=== PATIENT | female | born 1935 | race Caucasian/White ===

== ENCOUNTER 2023-12-19 08:45 | Inpatient (IN) ==
[2023-12-19 13:34] LABS: ABS Monocytes 0.6 10^3/uL (0.0-0.9); ABS Neutrophils 5.9 10^3/uL (1.5-7.6); ABS Nucleated RBC 0.01 10^3/ul; Hematocrit 40.1 % (35-45); Hemoglobin 13.4 g/dL (11.5-14.3); Lymphocyte % 13.1 %; Mean Corpuscular Hgb Conc 33.4 g/dL (31-36); Mean Platelet Volume 8.5 fL (7.5-11.2); Nucleated Red Blood Cells % 0.2 %/100WBC (0.0-0.8); Platelet Count 180 10^3/uL (150-450); Red Blood Count 4.31 10^6/uL (3.63-4.92); Red Cell Distribution Width 15.5 % (12-17); White Blood Count 7.6 10^3/uL (3.8-11.8)
[2023-12-19 13:46] LABS: Activated Partial Thrombo Time 38.2 seconds (26.0-38.0); INR 2.66 (0.83-1.13)
[2023-12-19 14:16] LABS: Albumin/Globulin Ratio 1.3 (1-3); C Reactive Protein 72.3 mg/L (<8.01); Calcium 8.7 mg/dL (8.6-10.3); Creatinine, Serum 2.07 mg/dL (0.51-0.95); Globulin 3.1 g/dL (2-4); Magnesium 2.3 mg/dL (1.9-2.7); Potassium 5.1 mmol/L (3.5-5.0); Total Bilirubin 0.4 mg/dL (0.2-1.0); Total Protein 7.1 g/dL (6.4-8.9); eGFR CKD-EPI 22.6 (>60)
[2023-12-19] MEDS: Albuterol/Ipratropium NEB.SOL (2.5/0.5 MG) 3 ML NEB.SOLN INH ONE (14:46)
[2023-12-19 14:49] LABS: Urine Appearance Turbid; Urine Bilirubin Negative (Negative); Urine Blood 3+ (Negative); Urine Color Yellow; Urine Glucose Negative (Negative); Urine Ketones Trace (Negative); Urine Nitrite Negative (Negative); Urine Protein 1+ (>=30 mg/dL) (Negative); Urine Specific Gravity 1.024 (1.002-1.030); Urine Urobilinogen Negative (Negative); Urine pH 5.5 (5.0-8.0)
[2023-12-19 14:54] LABS: Urine Bacteria Absent /HPF (Absent); Urine Red Blood Cell 3+(>10/hpf) /HPF (0-Trace); Urine Squamous Epithelial Cell Present /HPF (Absent); Urine White Blood Cell 3+(>20/hpf) /HPF (0-Trace)
[2023-12-19 14:59] LABS: High Sensitivity Troponin 1 Hr 93 pg/mL (<15)
[2023-12-19] MEDS: cefTRIAXone 1 gm/50 mL D5W 1 GM/50 ML BAG IV ONE (16:19)
[2023-12-19] MEDS: CMCS: Pravastatin 20 mg TAB (NF) PO SCH (19:28)
[2023-12-19 22:51] LABS: Calcium 7.8 mg/dL (8.6-10.3); Creatinine, Serum 2.03 mg/dL (0.51-0.95); eGFR CKD-EPI 23.2 (>60)
[2023-12-20 07:29] LABS: Calcium 8.1 mg/dL (8.6-10.3); Creatinine, Serum 1.95 mg/dL (0.51-0.95); HDL Cholesterol 34.7 mg/dL; Magnesium 2.2 mg/dL (1.9-2.7); Potassium 4.6 mmol/L (3.5-5.0); eGFR CKD-EPI 24.3 (>60)
[2023-12-20 07:33] LABS: Hematocrit 38.6 % (35-45); Mean Corpuscular Hgb Conc 31.1 g/dL (31-36); Mean Corpuscular Volume 99.6 fL (80-97); Mean Platelet Volume 8.8 fL (7.5-11.2); Platelet Count 135 10^3/uL (150-450); Red Blood Count 3.87 10^6/uL (3.63-4.92); Red Cell Distribution Width 16.3 % (12-17); White Blood Count 6.2 10^3/uL (3.8-11.8)
[2023-12-20 07:44] LABS: TSH Ultra Thyroid Stim Horm 1.44 mcIU/mL (0.34-5.60)
[2023-12-20 08:00] LABS: ABS Eosinophils 0.1 10^3/uL (0.0-0.5); ABS Monocytes 0.7 10^3/uL (0.0-0.9); ABS Neutrophils 3.5 10^3/uL (1.5-7.6); ABS Nucleated RBC 0.02 10^3/ul; Lymphocyte % 32.4 %; Nucleated Red Blood Cells % 0.4 %/100WBC (0.0-0.8)
[2023-12-20 09:40] LABS: INR 3.29 (0.83-1.13)
[2023-12-20] MEDS ORDERED: Sulfur Hexaflouride MICROSPHR 25 MG VIAL ONE (10:07)
[2023-12-20] MEDS: cefTRIAXone 1 gm/50 mL D5W 1 GM/50 ML BAG IV SCH (17:00)
[2023-12-21 05:55] LABS: ABS Eosinophils 0.1 10^3/uL (0.0-0.5); ABS Lymphocytes 1.8 10^3/uL (1.0-4.8); ABS Monocytes 0.6 10^3/uL (0.0-0.9); ABS Neutrophils 2.5 10^3/uL (1.5-7.6); Eosinophil % 2.4 %; Hematocrit 35.1 % (35-45); Hemoglobin 11.6 g/dL (11.5-14.3); Lymphocyte % 36.2 %; Mean Corpuscular Hemoglobin 31.1 pg (27-33); Mean Corpuscular Hgb Conc 33.1 g/dL (31-36); Mean Platelet Volume 8.7 fL (7.5-11.2); Nucleated Red Blood Cells % 0.1 %/100WBC (0.0-0.8); Platelet Count 157 10^3/uL (150-450); Red Blood Count 3.73 10^6/uL (3.63-4.92); Red Cell Distribution Width 15.1 % (12-17); White Blood Count 5.1 10^3/uL (3.8-11.8)
[2023-12-21 06:05] LABS: INR 2.73 (0.83-1.13)
[2023-12-21 07:02] LABS: Calcium 7.8 mg/dL (8.6-10.3); Creatinine, Serum 1.86 mg/dL (0.51-0.95); Potassium 4.7 mmol/L (3.5-5.0); eGFR CKD-EPI 25.7 (>60)
[2023-12-21] MEDS: Phytonadione Oral Solution 5 MG/25 ML UDC PO ONE (16:21)
[2023-12-21] MEDS: cefTRIAXone 1 gm/50 mL D5W 1 GM/50 ML BAG IV SCH (16:21)
[2023-12-22 06:35] LABS: ABS Basophils 0.1 10^3/uL (0.0-0.1); ABS Eosinophils 0.1 10^3/uL (0.0-0.5); ABS Lymphocytes 2.6 10^3/uL (1.0-4.8); ABS Monocytes 0.5 10^3/uL (0.0-0.9); ABS Neutrophils 2.9 10^3/uL (1.5-7.6); ABS Nucleated RBC 0.01 10^3/ul; Eosinophil % 2.2 %; Hematocrit 36.8 % (35-45); Hemoglobin 12.1 g/dL (11.5-14.3); Lymphocyte % 41.5 %; Mean Corpuscular Hemoglobin 30.6 pg (27-33); Mean Corpuscular Volume 92.8 fL (80-97); Mean Platelet Volume 8.5 fL (7.5-11.2); Nucleated Red Blood Cells % 0.1 %/100WBC (0.0-0.8); Platelet Count 223 10^3/uL (150-450); Red Blood Count 3.97 10^6/uL (3.63-4.92); Red Cell Distribution Width 14.6 % (12-17); White Blood Count 6.2 10^3/uL (3.8-11.8)
[2023-12-22 06:50] LABS: INR 1.69 (0.83-1.13)
[2023-12-22 07:20] LABS: Calcium 7.9 mg/dL (8.6-10.3); Creatinine, Serum 1.87 mg/dL (0.51-0.95); Magnesium 2.3 mg/dL (1.9-2.7); Potassium 4.1 mmol/L (3.5-5.0); eGFR CKD-EPI 25.6 (>60)
[2023-12-22] MEDS ORDERED: fentaNYL 100 mcg/2 ml 50 MCG/ML VIAL ONE (08:42)
[2023-12-22] MEDS ORDERED: Midazolam 2 mg/2 ml VIAL 1 mg/ml 2 ml VIAL (2 mg) ONE (08:43)
[2023-12-22] MEDS ORDERED: Acetaminophen IV 1 GM/100ML 1,000 MG/100 ML BAG IV ONE ×2 (10:04→13:58)
[2023-12-22] MEDS ORDERED: Naloxone 0.4 mg VIAL 0.4 mg/ml 1 ml VIAL IV PRN (11:15)
[2023-12-22] MEDS ORDERED: Ondansetron 4 mg VIAL 2 MG/ML 2 ml VIAL IV PRN (11:15)
[2023-12-22] MEDS ORDERED: fentaNYL 100 mcg/2 ml 50 MCG/ML VIAL IV PRN (11:15)
[2023-12-22] MEDS ORDERED: Levalbuterol 1.25MG/0.5ML NEB.SOL ONE (13:01)
[2023-12-22] MEDS ORDERED: Phenylephrine IV 10 MG/ML 1 ml VIAL ONE (13:06)
[2023-12-22] MEDS: Levalbuterol 1.25MG/0.5ML NEB.SOL INH ONE (13:10)
[2023-12-22] MEDS ORDERED: Ondansetron 4 mg VIAL 2 MG/ML 2 ml VIAL ONE (13:54)
[2023-12-22] MEDS ORDERED: Dexamethasone IV 4 MG/ML VIAL 1 ml VIAL ONE (13:54)
[2023-12-22] MEDS ORDERED: Etomidate 20 mg/10 ml 2 MG/ML 10 ml VIAL ONE (13:58)
[2023-12-22] MEDS ORDERED: Propofol 10 MG/ML 20 ML BTL ONE (14:10)
[2023-12-22] MEDS: Ampicillin ADVAN 2 GM in NS 0.9% 100 ML 100 ML IVPB ONE (15:28)
[2023-12-22] MEDS: Gentamicin ADULT 275 MG in NS 0.9% 100 ml BAG 100 ML IVPB ONE (15:28)
[2023-12-22] MEDS ORDERED: Enoxaparin 80 MG/0.8 ML SYR SUBCUT SCH (18:30)
[2023-12-22] MEDS ORDERED: Warfarin per PHARMACY **NOTE FOLLOW UP SCH (19:00)
[2023-12-23 07:30] LABS: INR 1.18 (0.83-1.13)
[2023-12-23] MEDS: Enoxaparin 80 MG/0.8 ML SYR SUBCUT SCH (09:09)
[2023-12-23 11:32] VITALS: BP 126/56
== END 2023-12-23 12:50 | disposition home health service (06) | DRG 659 ==
LOC: ED 08:45 → SUATTDRO 18:39 → EDHOLD 18:39 → MEDTELE 22:26 → SSU 12-22 15:48
PROVIDERS: ADMIT Internal Medicine; ATTEND Internal Medicine